=== PATIENT | male | born 1955 | race Caucasian/White ===

== ENCOUNTER 2018-04-04 20:20 | Emergency (ER) | payer MEDICAID ==
[~2018-04-04] VITALS: Ht 182.9 cm; Wt 77.3 kg
[~2018-04-04 20:20] MED LIST: ASPI-1264 PO; QUET25TA PO
[2018-04-04 20:26] VITALS: BP 113/69
[2018-04-04] MEDS ORDERED: PERM60CR19 TP (20:37)
[2018-04-04] MEDS ORDERED: PIP1KIT5 TP (20:37)
== END 2018-04-04 20:50 | disposition home or self-care (01) ==
LOC: ER 20:21
DX: B86 Scabies (principal); Z56.0 Unemployment, unspecified; Z79.82 Long term (current) use of aspirin; Z79.899 Other long term (current) drug therapy
CPT/HCPCS: 99283

== ENCOUNTER 2019-01-31 09:31 | Emergency (ER) | payer MEDICAID ==
[~2019-01-31] VITALS: Ht 182.9 cm; Wt 77.3 kg
[~2019-01-31 09:31] MED LIST changes: +PIP1KIT5 TP
[2019-01-31 10:25] LABS: BASOPHILS % (AUTO) 0.7 % (0-1); EOSINOPHILS # (AUTO) 0.2 X10'3 (0-0.9); EOSINOPHILS % (AUTO) 2.4 % (0-6); HEMATOCRIT 40.8 % (42.0-52.0); HEMOGLOBIN 13.7 g/dl (14.0-17.9); LYMPHOCYTES # (AUTO) 1.2 X10'3 (1.1-4.8); LYMPHOCYTES % (AUTO) 17.7 % (21-51); MEAN CORPUSCULAR HGB CONC 33.7 g/dL (33.0-36.5); MEAN CORPUSCULAR VOLUME 88.9 FL (78-98); MEAN PLATELET VOLUME 6.6 FL (7.4-10.4); MONOCYTES # (AUTO) 0.7 X10'3 (0-0.9); NEUTROPHILS # (AUTO) 4.9 X10'3 (1.8-7.7); NEUTROPHILS % (AUTO) 69.2 % (42-75); PLATELET COUNT 310 X10'3 (140-440); RED BLOOD COUNT 4.59 X10'6 (4.70-6.10); RED CELL DISTRIBUTION WIDTH 15.2 % (11.5-14.5); WHITE BLOOD COUNT 7.1 X10'3 (4.5-11.0)
[2019-01-31 10:38] LABS: ALANINE AMINOTRANSFERASE 86 U/L (12-78); ALBUMIN/GLOBULIN RATIO 0.6 (1.1-1.5); ALKALINE PHOSPHATASE 98 IU/L (46-116); ANION GAP 4 (8-16); ASPARTATE AMINO TRANSFERASE 66 U/L (10-37); BILIRUBIN,TOTAL 0.5 MG/DL (0.1-1.0); BLOOD UREA NITROGEN 12 MG/DL (7-18); BUN/CREATININE RATIO 17.9 (5.4-32.0); CALCIUM 8.8 MG/DL (8.5-10.1); CHLORIDE 107 MMOL/L (99-107); CREATININE 0.67 MG/DL (0.60-1.10); GLUCOSE 89 MG/DL (70-104); POTASSIUM 3.6 MMOL/L (3.5-5.1); SODIUM 139 MMOL/L (135-145); TOTAL CARBON DIOXIDE 28.5 MMOL/L (24-32); TOTAL PROTEIN 8.4 G/DL (6.4-8.2); eGFR > 90 ML/MIN
[2019-01-31 10:39] LABS: ETHANOL < 0.010 GM/DL (0.0-0.010)
--- NOTE | 2019-01-31 11:05 | NUR ---
pt belongings list completed, belongings placed in locker in ambulance bay
--- NOTE | 2019-01-31 11:24 | NUR ---
assumed care of pt from Chacha WHITAKER, pt is aware UA needed, has urinal, pt has agreed to stay to ER for evaluation by mental health
--- NOTE | 2019-01-31 12:30 | NUR ---
pt resting quietly on gurney, waiting to be evaluated by [facility]
--- NOTE | 2019-01-31 12:31 | NUR ---
gave pt sandwich, juice, pitcher of ice water and yogurt, pt is calm and cooperative, said he is hearing voices "they yell at me and tell me bad things"
[2019-01-31] MEDS ORDERED: nicotine 21mg patch - 24 hr TD ONE (12:35)
[2019-01-31 13:30] LABS: URINE AMPHETAMINE SCREEN NEGATIVE (Neg); URINE BARBITUATE SCREEN NEGATIVE (Neg); URINE BENZODIAZEPINES SCREEN NEGATIVE (Neg); URINE CANNABINOID SCREEN POSITIVE (Neg); URINE COCAINE SCREEN NEGATIVE (Neg); URINE METHADONE SCREEN NEGATIVE (Neg); URINE OPIATE SCREEN NEGATIVE (Neg); URINE PHENCYCLIDINE SCREEN NEGATIVE (Neg)
[2019-01-31] MEDS ORDERED: HYDR25CA PO (13:38)
[2019-01-31] MEDS ORDERED: QUET25TA PO (13:38)
--- NOTE | 2019-01-31 14:18 | NUR ---
pt is sleeping, gave pt warm blanket and pillow
--- NOTE | 2019-01-31 15:42 | NUR ---
pt ate lunch, maddie well, continues to rest quietly on [facility]
--- NOTE | 2019-01-31 16:27 | NUR ---
pt is resting quietly on gurney, resp even and unlabored, talking quietly to himself
--- NOTE | 2019-01-31 17:29 | NUR ---
pt is resting quietly on gurney
--- NOTE | 2019-01-31 17:55 | NUR ---
[facility] requesting TSH and UA, lab is aware
[2019-01-31 18:16] LABS: CLARITY,URINE CLEAR (Clear); COLOR,URINE YELLOW (Yellow); GLUCOSE, URINE NEGATIVE (Neg); KETONES,URINE NEGATIVE (Neg); LEUKOCYTE ESTERASE ,URINE NEGATIVE (Neg); NITRITES, URINE NEGATIVE (Neg); OCCULT BLOOD,URINE MODERATE (Neg); PROTEIN,URINE 100 mg/dl (Neg); UA COLLECTION TYPE CLN CATCH MIDSTREAM
[2019-01-31 18:23] LABS: SQUAMOUS EPITHELIAL CELL,UR FEW /LPF (FEW)
[2019-01-31 18:24] LABS: BACTERIA,URINE FEW /HPF (Neg); MUCUS STRANDS FEW /LPF (Neg)
[2019-01-31 18:25] LABS: HYALINE CASTS 0-3 /LPF (NEGATIVE)
--- NOTE | 2019-01-31 20:00 | NUR ---
The patient is a 63 y/o gentleman who was brought to the ER on a 5150 from [facility] via EMS. He was residing at the [facility] when he had increased psychotic symptoms and began hitting himself in the head and subsequently has a blackened right eye. He stated he has been taking all of his medications as directed but that he had recently had a medication change but was not able to state clearly what that was. He admits to having suicidal thoughts but stated, "I think about it but I'm a gnosticism and I don't want to go to the [place] of [place]" He reports constant voices telling him to do a variety of things and that they also insult him. He reports having visual hallucinations of different colors and shapes. He is very cooperative and pleasant. He was given a dinner tray and he ate well.
[2019-01-31] MEDS ORDERED: QUEtiapine 25mg tablet PO SCH (21:00)
[2019-01-31] MEDS: hydrOXYzine 25 MG tablet PO PRN (21:05)
--- NOTE | 2019-01-31 21:16 | NUR ---
Report given to Sera Wahl.
--- NOTE | 2019-01-31 21:47 | NUR ---
[facility] has been accepted for tomorrow morning at around 10am. The accepting provider is NABEEL Bianchi Chi.
--- NOTE | 2019-01-31 21:50 | NUR ---
The patient was complaining about his left ear. Dr. Riley made aware
--- NOTE | 2019-01-31 22:57 | NUR ---
Irrigation to patient's left ear with a moderate amount of cebum return. The patient is currently resting on his bed.
--- NOTE | 2019-02-01 00:32 | NUR ---
The patient appears to be asleep
--- NOTE | 2019-02-01 01:44 | NUR ---
The patient awake and yelling in response to voices. Woke up peer in the next bed. He then attempted to walk away and had to be redirected. The patient is cooperative with redirection but agitated by the voices.
[2019-02-01] MEDS ORDERED: haloperidol 5mg tablet PO ONE (01:45)
[2019-02-01] MEDS ORDERED: diphenhydrAMINE 25mg capsule PO ONE (01:45)
[2019-02-01] MEDS ORDERED: LORazepam 1 MG tablet PO ONE (01:45)
--- NOTE | 2019-02-01 02:11 | NUR ---
Dr. Riley made aware of patient agitation and orders received. The patient is paranoid and stated that the medications that were ordered were for punishment and he was assured that staff were trying to help him. He was given a snack of a sandwhich which he is eating at this time and studying the information on the wall.
--- NOTE | 2019-02-01 02:46 | NUR ---
The patient is sitting on his bed facing the wall and studying the posters on his wall again. He appears to be responding to internal stimuli but is less agitated at this time.
--- NOTE | 2019-02-01 04:40 | NUR ---
The patient appears to be sleeping
--- NOTE | 2019-02-01 06:30 | NUR ---
Pt lying in bed, appears to be sleeping.
[2019-02-01] MEDS ORDERED: QUEtiapine 25mg tablet PO SCH (07:30)
--- NOTE | 2019-02-01 07:58 | NUR ---
Pt up to the BR.
[2019-02-01] MEDS: hydrOXYzine 25 MG tablet PO PRN (08:34)
--- NOTE | 2019-02-01 08:41 | NUR ---
Deanne pyle from [facility], pt has been accepted at [facility], p/u time is 9485.
--- NOTE | 2019-02-01 09:47 | NUR ---
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
--- NOTE | 2019-02-01 09:52 | NUR ---
Pt transferred to [facility], all belongings given to security to carry to compressed air pile driver operator's car, pt ambulated out of building accompanied by compressed air pile driver operator and security.
[2019-02-01 09:54] VITALS: BP 130/77
== END 2019-02-01 09:52 ==
LOC: ER 09:32
DX: S00.11XA Contusion of right eyelid and periocular area, initial encounter (principal); F29 Unspecified psychosis not due to a substance or known physiological condition; B18.2 Chronic viral hepatitis C; F17.210 Nicotine dependence, cigarettes, uncomplicated; Z79.899 Other long term (current) drug therapy; Z56.0 Unemployment, unspecified; W22.8XXA Striking against or struck by other objects, initial encounter; Y93.89 Activity, other specified; Y92.89 Other specified places as the place of occurrence of the external cause; Y99.8 Other external cause status
CPT/HCPCS: 36415; 80053; 80305; 80320; 81001; 84443; 85025; 87088; 93005; 99285; Q0163; Q0177

== ENCOUNTER 2020-03-10 08:37 | Day surgery (SDC) | payer MEDICAID ==
[~2020-03-10] VITALS: Ht 182.9 cm; Wt 79.5 kg
[~2020-03-10 08:37] MED LIST changes: -ASPI-1264 PO; +HYDR25CA PO; -PIP1KIT5 TP
[2020-03-10 08:49] VITALS: BP 145/72
[2020-03-10] MEDS ORDERED: HYDR50TA65 PO (08:53)
[2020-03-10] MEDS ORDERED: QUET-1 PO (08:53)
[2020-03-10] MEDS ORDERED: LIDOcaine Viscous 15ml cup ONE (08:53)
[2020-03-10] MEDS ORDERED: MIDAZolam 5mg/5ml vial ONE (08:53)
[2020-03-10] MEDS ORDERED: fentaNYL/PF 50MCG/1 ML 2ML syringe ONE (08:53)
[2020-03-10 10:55] VITALS: BP 121/74
[2020-03-10 11:05] VITALS: BP 121/74
[2020-03-10 11:15] VITALS: BP 121/57
[2020-03-10 11:25] VITALS: BP 121/81
== END 2020-03-10 11:55 | disposition home or self-care (01) ==
LOC: GI LAB 08:37
PROVIDERS: ATTEND Internal Medicine Gastroenterology
DX: K74.60 Unspecified cirrhosis of liver (principal); I85.00 Esophageal varices without bleeding; K22.8 Other specified diseases of esophagus; K20.8 Other esophagitis; K29.70 Gastritis, unspecified, without bleeding
CPT/HCPCS: 43239; 99152; J2250; J3010; J7040; A4620

== ENCOUNTER 2020-08-18 21:41 | Emergency (ER) | payer MEDICAID ==
[~2020-08-18] VITALS: Ht 182.9 cm; Wt 80.0 kg
[~2020-08-18 21:41] MED LIST changes: -HYDR25CA PO; +HYDR50TA65 PO; +QUET-1 PO; -QUET25TA PO
[2020-08-18 21:53] VITALS: BP 123/87
[2020-08-18] MEDS ORDERED: Permethrin Cream 60gm TP ONE (23:10)
--- NOTE | 2020-08-18 23:41 | NUR ---
per pa we are to give patient the topical creams to take home and to use themselves after education
[2020-08-19] MEDS ORDERED: diphenhydrAMINE 2%/zinc acetate cream TP SCH (08:00)
== END 2020-08-18 23:44 | disposition home or self-care (01) ==
LOC: ER 21:41
DX: B86 Scabies (principal); N18.9 Chronic kidney disease, unspecified; Z86.19 Personal history of other infectious and parasitic diseases; Z72.89 Other problems related to lifestyle; Z56.0 Unemployment, unspecified; Z79.899 Other long term (current) drug therapy
CPT/HCPCS: 99283

== ENCOUNTER 2021-03-02 19:02 | Inpatient (IN) | payer MEDICAID ==
[~2021-03-02] VITALS: Ht 180.3 cm; Wt 106.9 kg
[2021-03-02 20:07] LABS: BASOPHILS % (AUTO) 0.2 % (0-1); EOSINOPHILS # (AUTO) 0.2 X10'3 (0-0.9); EOSINOPHILS % (AUTO) 1.4 % (0-6); HEMATOCRIT 44.5 % (42.0-52.0); HEMOGLOBIN 14.4 g/dl (14.0-17.9); LYMPHOCYTES # (AUTO) 0.2 X10'3 (1.1-4.8); LYMPHOCYTES % (AUTO) 1.1 % (21-51); MEAN CORPUSCULAR HEMOGLOBIN 30.6 PG (27.0-31.0); MEAN CORPUSCULAR HGB CONC 32.3 g/dL (33.0-36.5); MEAN CORPUSCULAR VOLUME 94.6 FL (78-98); MEAN PLATELET VOLUME 7.7 FL (7.4-10.4); MONOCYTES # (AUTO) 0.5 X10'3 (0-0.9); MONOCYTES % (AUTO) 2.8 % (2-12); NEUTROPHILS # (AUTO) 16.9 X10'3 (1.8-7.7); NEUTROPHILS % (AUTO) 94.5 % (42-75); PLATELET COUNT 213 X10'3 (140-440); RED BLOOD COUNT 4.71 X10'6 (4.70-6.10); RED CELL DISTRIBUTION WIDTH 18.1 % (11.5-14.5); WHITE BLOOD COUNT 17.8 X10'3 (4.5-11.0)
[2021-03-02 20:21] LABS: ALANINE AMINOTRANSFERASE 156 U/L (12-78); ALBUMIN 2.7 G/DL (3.4-5.0); ALKALINE PHOSPHATASE 76 IU/L (46-116); ANION GAP 11 (8-16); ASPARTATE AMINO TRANSFERASE 248 U/L (10-37); BILIRUBIN,TOTAL 4.8 MG/DL (0.1-1.0); BLOOD UREA NITROGEN 36 MG/DL (7-18); BUN/CREATININE RATIO 31.9 (5.4-32.0); CALCIUM 8.7 MG/DL (8.5-10.1); CHLORIDE 99 MMOL/L (99-107); CREATININE 1.13 MG/DL (0.60-1.10); GLUCOSE 80 MG/DL (70-104); POTASSIUM 4.4 MMOL/L (3.5-5.1); SODIUM 136 MMOL/L (135-145); TOTAL CARBON DIOXIDE 25.7 MMOL/L (24-32); eGFR 65 ML/MIN
[2021-03-02 20:29] LABS: ALBUMIN/GLOBULIN RATIO 0.5 (1.1-1.5); TOTAL PROTEIN 7.9 G/DL (6.4-8.2)
[2021-03-02] MEDS ORDERED: methylPREDNISolone sod succ 125mg/2ml vial IV ONE (21:00)
[2021-03-02] MEDS ORDERED: ipratropium/albuterol 3ml nebule NEB ONE (21:00)
[2021-03-02] MEDS ORDERED: temazepam 15mg capsule PO PRN (21:00)
[2021-03-02] MEDS ORDERED: albuterol 2.5 MG/3 ML nebule NEB ONE (21:00)
[2021-03-02 21:25] LABS: ANISOCYTOSIS 2+; PLATELET ESTIMATE NORMAL; TOTAL CELLS COUNTED 100; TOXIC GRANULATION 1+; TOXIC VACUOLATION 3+
[2021-03-02 21:26] LABS: BURR CELLS 1+
[2021-03-02] MEDS ORDERED: normal saline 1000ml 1,000 ML IV SCH (21:50)
[2021-03-02] MEDS ORDERED: magnesium 2GM in 50ml NS 50 ML IV PRN (21:50)
[2021-03-02] MEDS ORDERED: magnesium 4gm in 100ml NS 100 ML IV PRN (21:50)
[2021-03-02] MEDS ORDERED: aminophylline 250mg/10ml inj. IV PRN (21:50)
[2021-03-02] MEDS ORDERED: metoprolol tartrate 1mg/ml inj IV PRN (21:50)
[2021-03-02] MEDS ORDERED: potassium Cl 20 mEq SR tablet PO PRN ×2 (21:50)
[2021-03-02] MEDS ORDERED: magnesium Cl slow-release 64mg tablet PO PRN (21:50)
[2021-03-02] MEDS ORDERED: potassium Cl 40MEQ/1/2NS 520ml 520 ML IV PRN ×2 (21:50)
[2021-03-02] MEDS ORDERED: regadenoson 0.4mg/5ml syringe IV PRN (21:50)
[2021-03-02] MEDS ORDERED: nitroGLYCERIN 0.4mg SUBLingual tab SL PRN (21:50)
[2021-03-02] MEDS ORDERED: acetaminophen 325mg tablet PO PRN ×2 (21:50)
[2021-03-02] MEDS ORDERED: VANCOMYCIN 1,500MG inj. 1,500 MG in normal saline 500ml IV soln 300 ML IV ONE (22:05)
[2021-03-02] MEDS: ondansetron/PF 4mg/2ml inj IV PRN (22:46)
[2021-03-02] MEDS: CefTRIAXone 2gm/D5W 50ml BAG 50 ML IV SCH (22:47)
[2021-03-02] MEDS: albuterol 2.5 MG/3 ML nebule NEB SCH (23:24)
[2021-03-02 23:48] LABS: CLARITY,URINE SLIGHTLY CLOUDY (Clear); GLUCOSE, URINE NEGATIVE (Neg); KETONES,URINE NEGATIVE (Neg); LEUKOCYTE ESTERASE ,URINE NEGATIVE (Neg); NITRITES, URINE NEGATIVE (Neg); OCCULT BLOOD,URINE NEGATIVE (Neg); PROTEIN,URINE TRACE mg/dl (Neg)
[2021-03-02 23:55] LABS: COLOR,URINE DARK YELLOW (Yellow); UA COLLECTION TYPE URINAL
[2021-03-02 23:57] LABS: AMORPHOUS URATES 1+; BACTERIA,URINE NONE SEEN /HPF (Neg); MUCUS STRANDS MODERATE /LPF (Neg); RBC,URINE 0-2 /HPF (0-2); SQUAMOUS EPITHELIAL CELL,UR FEW /LPF (FEW); WBC,URINE 0-4 /HPF (0-4)
[2021-03-03] VITALS (14 sets, daily range): BP systolic 93–162; BP diastolic 55–84
[2021-03-03] MEDS ORDERED: fentaNYL/PF 50MCG/1 ML 2ML syringe IV ONE
[2021-03-03] MEDS ORDERED: etomidate 2mg/ml inj. IV ONE
[2021-03-03] MEDS ORDERED: ondansetron/PF 4mg/2ml inj IV ONE ×2
[2021-03-03] MEDS ORDERED: heparin 10,000 units/1 ML INJ IV ONE
[2021-03-03] MEDS: ondansetron/PF 4mg/2ml inj IV PRN (00:12)
[2021-03-03] MEDS ORDERED: amiodarone 150mg/dext, iso-os 100 ML IV ONE (00:20)
--- NOTE | 2021-03-03 00:58 | NUR ---
PT BELONGINGS GIVEN TO EVS TO LOCK UP IN THE SPECIAL AREA FOR ARTICLES CONTAMINATED WITH BED BUGS, BODY LICE ETC. ALL ITEMS DOUBLE BAGGED.
[2021-03-03] MEDS ORDERED: diltiazem-D5W 125mg/125ml 125 ML IV SCH (01:00)
[2021-03-03] MEDS: diltiazem-NS 100mg/100ml 100 ML IV SCH ×2 (01:06→11:49)
[2021-03-03 02:10] LABS: BASOPHILS % (AUTO) 0.2 % (0-1); EOSINOPHILS # (AUTO) 0.4 X10'3 (0-0.9); EOSINOPHILS % (AUTO) 2.8 % (0-6); HEMOGLOBIN 11.5 g/dl (14.0-17.9); LYMPHOCYTES # (AUTO) 0.2 X10'3 (1.1-4.8); LYMPHOCYTES % (AUTO) 1.3 % (21-51); MEAN CORPUSCULAR HGB CONC 31.9 g/dL (33.0-36.5); MEAN PLATELET VOLUME 7.9 FL (7.4-10.4); MONOCYTES # (AUTO) 0.4 X10'3 (0-0.9); MONOCYTES % (AUTO) 2.8 % (2-12); NEUTROPHILS # (AUTO) 13.2 X10'3 (1.8-7.7); NEUTROPHILS % (AUTO) 92.9 % (42-75); PLATELET COUNT 172 X10'3 (140-440); RED BLOOD COUNT 3.83 X10'6 (4.70-6.10); RED CELL DISTRIBUTION WIDTH 17.9 % (11.5-14.5); WHITE BLOOD COUNT 14.2 X10'3 (4.5-11.0)
[2021-03-03 02:28] LABS: ALANINE AMINOTRANSFERASE 96 U/L (12-78); ALBUMIN 1.8 G/DL (3.4-5.0); ALBUMIN/GLOBULIN RATIO 0.5 (1.1-1.5); ALKALINE PHOSPHATASE 51 IU/L (46-116); ANION GAP 11 (8-16); ASPARTATE AMINO TRANSFERASE 126 U/L (10-37); BILIRUBIN,TOTAL 4.5 MG/DL (0.1-1.0); BLOOD UREA NITROGEN 35 MG/DL (7-18); BUN/CREATININE RATIO 29.4 (5.4-32.0); CALCIUM 6.7 MG/DL (8.5-10.1); CHLORIDE 106 MMOL/L (99-107); CREATININE 1.19 MG/DL (0.60-1.10); GLUCOSE 95 MG/DL (70-104); HDL CHOLESTEROL 10 MG/DL (35-60); LDL CHOLESTEROL 22 MG/DL (50-100); MAGNESIUM 1.9 MG/DL (1.5-2.4); POTASSIUM 3.7 MMOL/L (3.5-5.1); SODIUM 139 MMOL/L (135-145); TOTAL PROTEIN 5.4 G/DL (6.4-8.2); TRIGLYCERIDES 44 MG/DL (20-135); eGFR 62 ML/MIN
[2021-03-03 02:34] LABS: CHOLESTEROL < 50 MG/DL (0-200)
[2021-03-03] MEDS ORDERED: HYDR-3686 PO (03:40)
[2021-03-03] MEDS: albuterol 2.5 MG/3 ML nebule NEB SCH ×2 (03:40→08:01)
--- NOTE | 2021-03-03 04:31 | NUR ---
PAGER ID: [phone] MESSAGE: Jose Daniel Leonard rm 3020 dx SOB 1wk; COPD/CHF exacerbation Pt is complaining of chest pain 04/24. Shanita Paxton [phone]
--- NOTE | 2021-03-03 04:59 | NUR ---
Notified Dr Rubio about pt complaint of chest pain 04/24. Dr Rubio stated she is aware of the patient's chest pain and there is a charley scan ordered for today. No new orders at this time.
--- NOTE | 2021-03-03 06:11 | NUR ---
Problems reprioritized. Patient report given, questions answered & plan of care reviewed with JULIANNE Peoples.
--- NOTE | 2021-03-03 06:43 | NUR ---
Patient in room PCU 3020. I have received report from Shanita WHITAKER and had the opportunity to ask questions and assume patient care.
--- NOTE | 2021-03-03 07:23 | NUR ---
Paged Dr. Burkett regarding lexiscan PAGER ID: [phone] MESSAGE: [phone] Jose Daniel Leonard. House sup called. Lexiscan cancelled for patient today. Patient needs a cardiac consult. Not have active chest pain. And needs to be on PO cardiac med. Before lexiscan can be complete. PCU Crystal
[2021-03-03] MEDS ORDERED: heparin, porcine 5000 units/ml vial SQ SCH (08:00)
[2021-03-03] MEDS ORDERED: nicotine 14mg patch - 24hr TD SCH (08:00)
[2021-03-03] MEDS ORDERED: methylPREDNISolone sod succ 125mg/2ml vial IV SCH (08:00)
[2021-03-03] MEDS: K and/or MAG REPLACEMENT MC SCH ×2 (08:00→20:00)
[2021-03-03] MEDS: aspirin 81mg tablet.DR PO SCH (09:01)
[2021-03-03] MEDS: docusate sod 100mg capsule PO SCH ×2 (09:02→20:24)
[2021-03-03] MEDS: nicotine 14mg patch - 24hr TD SCH (09:02)
[2021-03-03] MEDS: pantoprazole 40mg Tablet.DR PO SCH (09:02)
[2021-03-03] MEDS: furosemide 40mg/4ml inj IV SCH ×2 (09:02→20:00)
[2021-03-03] MEDS ORDERED: QUET100T33 PO (09:23)
--- NOTE | 2021-03-03 09:29 | NUR ---
Paged Dr. Burkett regarding 11 beat run of vtach PAGER ID: [phone] MESSAGE: [phone] Jose Daniel Leonard. Patient had a 11 beat run of Vtach at 0828. [facility]
[2021-03-03] MEDS ORDERED: OMEP20TA5 PO (09:38)
[2021-03-03] MEDS ORDERED: Permethrin 1% 59ml topical rinse TP ONE (11:10)
[2021-03-03] MEDS ORDERED: Ivermectin 3mg tablet PO ONE (11:15)
[2021-03-03] MEDS: vancomycin/NS 1 GM ADD-VANTAGE 250 ML IV SCH ×2 (11:48→22:29)
[2021-03-03] MEDS ORDERED: hydrOXYzine 25 MG tablet PO PRN (13:05)
[2021-03-03] MEDS ORDERED: ipratropium/albuterol 3ml nebule NEB PRN (13:05)
[2021-03-03] MEDS: metoprolol succinate 25mg (24-HOUR) SR. Tablet PO SCH (13:22)
[2021-03-03] MEDS: methylPREDNISolone sod succ 125mg/2ml vial IV SCH ×2 (14:00→20:24)
--- NOTE | 2021-03-03 14:17 | NUR ---
Problems reprioritized. Patient report given, questions answered & plan of care reviewed with Hope RN. Patient stable at transfer of care.
[2021-03-03] MEDS: ipratropium/albuterol 3ml nebule NEB SCH ×3 (15:00→23:34)
--- NOTE | 2021-03-03 15:29 | NUR ---
Malnutrition consult: Pt reports wt loss with decreased appetite per malnutrition risk screen with RN. Noted that pt has memory loss issues and is a poor historian per H&P. Pt with bed scaled wt of 106.9 kg, wt hx in EMR ranges 73-80 kg. Pt documented with severe muscle weakness and BUE/BLE moderate edema, possibly r/t h/o CHF. Pt on a heart healthy diet and eating well with documented 100% PO intake first meal. Pt currently lacks a minimum of two criteria for malnutrition. Will continue to follow and monitor qualifying criteria. Addendum: 03/03/21 at [address] Amended: Links added.
--- NOTE | 2021-03-03 16:12 | NUR ---
PAGER ID: [phone] MESSAGE: PATIENT IN ROOM 320-B ROSY RUIZ/Delaney HAS BEEN ON THE LOW SIDE BETWEEN , AND LAST ONE , JUST SOI THAT YOU ARE AWARE IF YOU WANT TO ORDER ANYN THING THANKS ( SHU REYNOSO)
--- NOTE | 2021-03-03 18:24 | NUR ---
Patient in room PCU 3020. I have received report from Hope WHITAKER and had the opportunity to ask questions and assume patient care.
[2021-03-03] MEDS: lactobacillus rhamnosus 10,000 MMU CELLS/CAPSULE PO SCH (20:24)
[2021-03-03] MEDS: quetiapine 100mg tablet PO SCH (20:24)
[2021-03-03] MEDS ORDERED: regadenoson 0.4mg/5ml syringe IV ONE (21:00)
[2021-03-03] MEDS ORDERED: nitroGLYCERIN 0.4mg SUBLingual tab SL PRN (21:00)
[2021-03-03] MEDS ORDERED: metoprolol tartrate 1mg/ml inj IV PRN (21:00)
[2021-03-03] MEDS ORDERED: aminophylline 250mg/10ml inj. IV PRN (21:00)
[2021-03-03] MEDS: CefTRIAXone 2gm/D5W 50ml BAG 50 ML IV SCH (21:00)
[2021-03-03 22:40] LABS: URINE AMPHETAMINE SCREEN NEGATIVE (Neg); URINE BARBITUATE SCREEN NEGATIVE (Neg); URINE BENZODIAZEPINES SCREEN NEGATIVE (Neg); URINE CANNABINOID SCREEN NEGATIVE (Neg); URINE COCAINE SCREEN NEGATIVE (Neg); URINE METHADONE SCREEN NEGATIVE (Neg); URINE OPIATE SCREEN NEGATIVE (Neg); URINE PHENCYCLIDINE SCREEN NEGATIVE (Neg)
[2021-03-04] VITALS (16 sets, daily range): BP systolic 83–125; BP diastolic 49–80
[2021-03-04] MEDS: methylPREDNISolone sod succ 125mg/2ml vial IV SCH ×4 (01:08→19:23)
[2021-03-04] MEDS: ipratropium/albuterol 3ml nebule NEB SCH ×6 (04:27→23:32)
--- NOTE | 2021-03-04 06:25 | NUR ---
Patient in room PCU 3020. I have received report from Naty WHITAKER and had the opportunity to ask questions and assume patient care. Pt sleeping soundly, VS stable. chest rising and falling evenly.
--- NOTE | 2021-03-04 06:29 | NUR ---
Problems reprioritized. Patient report given, questions answered & plan of care reviewed with Kerri WHITAKER.
--- NOTE | 2021-03-04 07:10 | NUR ---
DR ANKIT FELDMAN FOR RAPID RESPONSE. YNES CCRN AT BEDSIDE. PT O2 SAT 18. PT ROD AND NONRESPONSIVE.
[2021-03-04 07:14] LABS: BASOPHILS % (AUTO) 0.2 % (0-1); EOSINOPHILS # (AUTO) 0.1 X10'3 (0-0.9); EOSINOPHILS % (AUTO) 0.7 % (0-6); HEMATOCRIT 36.1 % (42.0-52.0); HEMOGLOBIN 11.7 g/dl (14.0-17.9); LYMPHOCYTES # (AUTO) 0.3 X10'3 (1.1-4.8); LYMPHOCYTES % (AUTO) 3.1 % (21-51); MEAN CORPUSCULAR HEMOGLOBIN 30.5 PG (27.0-31.0); MEAN CORPUSCULAR HGB CONC 32.5 g/dL (33.0-36.5); MEAN CORPUSCULAR VOLUME 93.8 FL (78-98); MEAN PLATELET VOLUME 8.1 FL (7.4-10.4); MONOCYTES # (AUTO) 0.4 X10'3 (0-0.9); MONOCYTES % (AUTO) 4.9 % (2-12); NEUTROPHILS # (AUTO) 7.4 X10'3 (1.8-7.7); NEUTROPHILS % (AUTO) 91.1 % (42-75); PLATELET COUNT 132 X10'3 (140-440); RED BLOOD COUNT 3.85 X10'6 (4.70-6.10); RED CELL DISTRIBUTION WIDTH 18.4 % (11.5-14.5); WHITE BLOOD COUNT 8.1 X10'3 (4.5-11.0)
[2021-03-04 07:22] LABS: ABG BASE EXCESS 0.1 mmol/L (-2.0-2.0); ABG HCO3 24.8 mmol/L (22.0-26.0); ABG OXYGEN SATURATION 99.5 % (94-97); ABG PCO2 (T) 40.4 mmHg (35.0-48.0); ALLEN'S TEST POSITIVE; FCOHb 0.1 % (0.0-3.9); FMetHb 0.3 % (0.0-1.5); FO2Hb 99.1 % (94-97); TOTAL HEMOGLOBIN 12.3 G/dl (14.0-18.0)
[2021-03-04 07:29] LABS: ALANINE AMINOTRANSFERASE 80 U/L (12-78); ALBUMIN 1.9 G/DL (3.4-5.0); ALBUMIN/GLOBULIN RATIO 0.4 (1.1-1.5); ALKALINE PHOSPHATASE 50 IU/L (46-116); ANION GAP 6 (8-16); ASPARTATE AMINO TRANSFERASE 65 U/L (10-37); BILIRUBIN,TOTAL 3.2 MG/DL (0.1-1.0); BLOOD UREA NITROGEN 50 MG/DL (7-18); BUN/CREATININE RATIO 43.9 (5.4-32.0); CHLORIDE 103 MMOL/L (99-107); CREATININE 1.14 MG/DL (0.60-1.10); GLUCOSE 145 MG/DL (70-104); MAGNESIUM 2.4 MG/DL (1.5-2.4); POTASSIUM 4.6 MMOL/L (3.5-5.1); SODIUM 138 MMOL/L (135-145); TOTAL CARBON DIOXIDE 28.9 MMOL/L (24-32); TOTAL PROTEIN 6.2 G/DL (6.4-8.2); eGFR 65 ML/MIN
[2021-03-04] MEDS: pantoprazole 40mg Tablet.DR PO SCH (07:30)
[2021-03-04] MEDS ORDERED: pantoprazole 40mg Tablet.DR PO SCH (07:30)
--- NOTE | 2021-03-04 07:30 | NUR ---
PAGER ID: [phone] MESSAGE: 302Enrique JOSEPH. [facility]
--- NOTE | 2021-03-04 07:41 | NUR ---
Dr. Burkett gave new orders New orders received for CXR, and CT angio of chest to R/O PE (with contrast.) Elsy to wait until after CTA.
[2021-03-04] MEDS: lactobacillus rhamnosus 10,000 MMU CELLS/CAPSULE PO SCH ×3 (08:00→20:00)
[2021-03-04] MEDS: K and/or MAG REPLACEMENT MC SCH ×2 (08:00→20:00)
[2021-03-04] MEDS: furosemide 40mg/4ml inj IV SCH ×2 (08:00→19:20)
[2021-03-04] MEDS: docusate sod 100mg capsule PO SCH ×3 (08:00→20:00)
[2021-03-04] MEDS: metoprolol succinate 25mg (24-HOUR) SR. Tablet PO SCH (08:00)
[2021-03-04 08:01] LABS: PLATELET ESTIMATE DECREASED
[2021-03-04 08:02] LABS: ANISOCYTOSIS 2+; BURR CELLS FEW; ELLIPTOCYTES FEW
[2021-03-04] MEDS: aspirin 81mg tablet.DR PO SCH (08:30)
[2021-03-04 08:47] LABS: HIV ANTIBODY 1&2 RAPID NON-REACTIVE (Neg)
[2021-03-04] MEDS ORDERED: normal saline 1000ml 1,000 ML IV ONE (09:45)
--- NOTE | 2021-03-04 09:45 | NUR ---
Dr. Burkett and this nurse spoke with pt regarding code status Pt accurately stated his name, though voice weak. Pt indicated "NO" to wanting CPR/intervention if his heart should stop x3. Pt repeatedly stating he wants to leave. Dr. Burkett to change code status to DNR. 250 ml fluid bolus ordered and administered. new order for covid rapid test stat, and Dr. Burkett indicated he wants thoracentesis done charles. Dr. Burkett notified that Lasix, metorprolol held due to BP: 91/52; HR 115; SPO2 97% on 3LPM. respirations 21.
[2021-03-04] MEDS ORDERED: VANCOMYCIN LEVEL IV ONE (10:30)
[2021-03-04] MEDS ORDERED: iohexol 350MG/ML 100ml bottle IV ONE (11:19)
[2021-03-04] MEDS: piperacillin/tazo 3.375gm/50ml 50 ML IV SCH ×3 (11:30→22:42)
--- NOTE | 2021-03-04 12:24 | NUR ---
Secondary Lice tx Per NABEEL Ford, second lice tx ordered. per Angio, thorocentesis can not be done until second lice hair tx completed.
[2021-03-04] MEDS ORDERED: Permethrin 1% 59ml topical rinse TP ONE (12:25)
[2021-03-04] MEDS: vancomycin/NS 1 GM ADD-VANTAGE 250 ML IV SCH ×2 (14:40→22:42)
[2021-03-04] MEDS: NORepinephrine 8mg/ 250ml NS 250 ML IV SCH (14:40)
[2021-03-04] MEDS ORDERED: DOBUTamine 2000 MCG/250ML BAG IV SCH (14:45)
--- NOTE | 2021-03-04 15:00 | NUR ---
ICU nurse and ICU Dr. Qureshi to unit Pt evaluated by ICU nurse and ICU doc. pt to be transferred to ICU. New orders for PICC. Thoracentesis to be completed prior to transfer.
[2021-03-04] MEDS ORDERED: albumin (human) 25% 100 ML IV solution IV ONE (15:35)
--- NOTE | 2021-03-04 15:42 | NUR ---
PICC consent Charlotte Pate (Pt's ex ) called and verbal consent for PICC given to this nurse and charge nurse Rhiannon Gomez RN
--- NOTE | 2021-03-04 15:43 | NUR ---
Thoracentesis completed. PICC nurse notified. Thoracentesis completed. 1200ml fluid drained. PICC nurse paged as soon as ryne done per her request. Pt positioned on his left side.
[2021-03-04] MEDS: nicotine 14mg patch - 24hr TD SCH (16:02)
[2021-03-04 16:23] LABS: BFSOURCE RIGHT PLEURAL FLD; PLEURAL FLUID PH 7.472 (7.63-7.65)
[2021-03-04 16:25] LABS: GLUCOSE,BODY FLUID 149 MG/DL; LDH,BODY FLUID 90 U/L
--- NOTE | 2021-03-04 16:26 | NUR ---
Called ICU to give report. Ct WHITAKER will call back to receive report.
--- NOTE | 2021-03-04 16:36 | NUR ---
received patient report from Kerri WHITAKER.
[2021-03-04 16:42] LABS: TOTAL PROTEIN,BODY FLUID < 2.0 G/DL
--- NOTE | 2021-03-04 16:48 | NUR ---
Problems reprioritized. Patient report given, questions answered & plan of care reviewed with Ct RN in ICU. pt to transfer after PICC placed.
[2021-03-04 17:09] LABS: LYMPHOCYTES,BODY FLUID 12 %; MONOCYTES,BODY FLUID 14 %; NEUTROPHILS,BODY FLUID 74 %
[2021-03-04 17:10] LABS: BFAPPEAR HAZY
[2021-03-04 17:11] LABS: BF MESOTHELIAL CELLS MODERATE; BF RBC COUNT 450 /CU MM; BF WBC COUNT 380 /CU MM (0-1000); BFCOLOR YELLOW; BFVOLUME 70 ML
--- NOTE | 2021-03-04 18:00 | NUR ---
Patient in room PCU 3020. I have received report from Kerri WHITAKER and had the opportunity to ask questions and assume patient care.
--- NOTE | 2021-03-04 18:16 | NUR ---
Problems reprioritized. Patient report given, questions answered & plan of care reviewed with Yoav RN and Shira RN. discussed course of events of the day and ICU transfer pending.
--- NOTE | 2021-03-04 18:22 | NUR ---
Patient report given, questions answered & plan of care reviewed with Adalberto WHITAKER.
[2021-03-04] MEDS: albumin (human) 25% 100ml IV 100 ML IV SCH (19:22)
[2021-03-04] MEDS: heparin, porcine 5000 units/ml vial SQ SCH (19:23)
[2021-03-04] MEDS ORDERED: LIDOcaine 2% 10ml TOPICAL JELLY (Urojet) TP ONE (20:35)
[2021-03-04] MEDS: quetiapine 100mg tablet PO SCH (20:38)
[2021-03-04] MEDS: LORazepam 2 mg/ml vial IV PRN (22:41)
[2021-03-05] VITALS (9 sets, daily range): BP systolic 100–131; BP diastolic 50–85
[2021-03-05] MEDS: NORepinephrine 8mg/ 250ml NS 250 ML IV SCH ×2 (01:28→15:38)
[2021-03-05] MEDS: albumin (human) 25% 100ml IV 100 ML IV SCH ×4 (01:43→19:49)
[2021-03-05] MEDS: methylPREDNISolone sod succ 125mg/2ml vial IV SCH ×4 (01:43→19:38)
[2021-03-05] MEDS: furosemide 40mg/4ml inj IV SCH ×4 (01:44→19:38)
[2021-03-05] MEDS: ipratropium/albuterol 3ml nebule NEB SCH ×6 (03:09→23:00)
[2021-03-05 03:15] LABS: BASOPHILS % (AUTO) 0.2 % (0-1); EOSINOPHILS % (AUTO) 0 % (0-6); HEMATOCRIT 34.2 % (42.0-52.0); LYMPHOCYTES # (AUTO) 0.3 X10'3 (1.1-4.8); LYMPHOCYTES % (AUTO) 2.9 % (21-51); MEAN CORPUSCULAR HEMOGLOBIN 30.4 PG (27.0-31.0); MEAN CORPUSCULAR HGB CONC 32.2 g/dL (33.0-36.5); MEAN CORPUSCULAR VOLUME 94.3 FL (78-98); MONOCYTES # (AUTO) 0.5 X10'3 (0-0.9); MONOCYTES % (AUTO) 5.5 % (2-12); NEUTROPHILS # (AUTO) 8.1 X10'3 (1.8-7.7); NEUTROPHILS % (AUTO) 91.4 % (42-75); PLATELET COUNT 109 X10'3 (140-440); RED BLOOD COUNT 3.62 X10'6 (4.70-6.10); RED CELL DISTRIBUTION WIDTH 18.3 % (11.5-14.5); WHITE BLOOD COUNT 8.9 X10'3 (4.5-11.0)
[2021-03-05 03:23] LABS: ALANINE AMINOTRANSFERASE 61 U/L (12-78); ALBUMIN 2.4 G/DL (3.4-5.0); ALBUMIN/GLOBULIN RATIO 0.6 (1.1-1.5); ALKALINE PHOSPHATASE 52 IU/L (46-116); ANION GAP 11 (8-16); ASPARTATE AMINO TRANSFERASE 45 U/L (10-37); BILIRUBIN,TOTAL 2.9 MG/DL (0.1-1.0); BLOOD UREA NITROGEN 51 MG/DL (7-18); BUN/CREATININE RATIO 45.9 (5.4-32.0); CALCIUM 7.9 MG/DL (8.5-10.1); CHLORIDE 102 MMOL/L (99-107); CREATININE 1.11 MG/DL (0.60-1.10); GLUCOSE 175 MG/DL (70-104); MAGNESIUM 2.3 MG/DL (1.5-2.4); POTASSIUM 4.1 MMOL/L (3.5-5.1); SODIUM 141 MMOL/L (135-145); TOTAL CARBON DIOXIDE 28.1 MMOL/L (24-32); TOTAL PROTEIN 6.5 G/DL (6.4-8.2); eGFR 67 ML/MIN
--- NOTE | 2021-03-05 06:22 | NUR ---
Problems reprioritized. Patient report given, questions answered & plan of care reviewed with Hope WHITAKER.
[2021-03-05] MEDS: K and/or MAG REPLACEMENT MC SCH ×2 (08:00→19:38)
[2021-03-05] MEDS: lactobacillus rhamnosus 10,000 MMU CELLS/CAPSULE PO SCH ×2 (08:04→19:38)
[2021-03-05] MEDS: pantoprazole 40mg Tablet.DR PO SCH (08:04)
[2021-03-05] MEDS: heparin, porcine 5000 units/ml vial SQ SCH ×2 (08:04→19:38)
[2021-03-05] MEDS: nicotine 14mg patch - 24hr TD SCH (08:04)
[2021-03-05] MEDS: docusate sod 100mg capsule PO SCH ×2 (08:04→19:38)
[2021-03-05] MEDS: metoprolol succinate 25mg (24-HOUR) SR. Tablet PO SCH (08:08)
[2021-03-05] MEDS: piperacillin/tazo 3.375gm/50ml 50 ML IV SCH ×2 (08:08→16:30)
[2021-03-05] MEDS: aspirin 81mg tablet.DR PO SCH (08:08)
[2021-03-05] MEDS: LORazepam 2 mg/ml vial IV PRN ×2 (10:02→19:52)
[2021-03-05] MEDS: lisinopril 20mg tablet PO SCH (10:50)
[2021-03-05] MEDS ORDERED: metoprolol succinate 25mg (24-HOUR) SR. Tablet PO SCH (10:50)
[2021-03-05 11:12] LABS: HBSAG SCREEN Negative (Negative); HEP A AB, IGM Negative (Negative); HEPATITIS C ANTIBODY >11.0 s/co ratio (0.0-0.9)
[2021-03-05] MEDS: vancomycin/NS 1 GM ADD-VANTAGE 250 ML IV SCH ×2 (11:45→23:53)
--- NOTE | 2021-03-05 12:54 | NUR ---
PAGER ID: [phone] MESSAGE: Re: Jose Daniel Leonard. Room: 3020. Order for Dobutamine was DC'd yesterday. Can I re-order it at 2mcg? -[facility] #[id number] -Dr. Burkett paged concerning Pt's medication orders.
[2021-03-05] MEDS: DOBUTamine-DoBUTrex 500mg/D5W 250 ML IV SCH (13:45)
--- NOTE | 2021-03-05 18:40 | NUR ---
Patient in room PCU 3020. I have received report from mateo singh and had the opportunity to ask questions and assume patient care.
--- NOTE | 2021-03-05 19:20 | NUR ---
asked dr jones is he wants heparin subq given for this evening since platelets are 109, he said go ahead and administer
[2021-03-05] MEDS: quetiapine 100mg tablet PO SCH (21:00)
--- NOTE | 2021-03-05 21:23 | NUR ---
PT PULLED OUT PICC LINE SENIOR ENVIRONMENTAL TECHNICIAN AWARE
[2021-03-05] MEDS ORDERED: amiodarone 150mg/dext, iso-os 100 ML IV ONE ×2 (22:35→23:00)
[2021-03-05] MEDS: amiodarone/D5 360MG/200ML BAG 200 ML IV SCH (22:45)
--- NOTE | 2021-03-05 22:51 | NUR ---
dr jones was notified about the patient ripping everything off. his picc line and being non compliant. pt was placed in restraints. was asked for haldol or geodone but he will only increase to 1 mg of ativan. he was told ativan did not work earlier. pt is suppose to be on dibutamine and currently we have no iv access.
--- NOTE | 2021-03-05 22:57 | NUR ---
PAGER ID: [phone] MESSAGE: Jose Daniel Akbar [id number] Please call me as soon as you can to verify orders. Pt ripped out his Picc line. Thank You, Jagjit WHITAKER PCU [id number]
[2021-03-05] MEDS ORDERED: haloperidol lactate 5mg/ml inj IM ONE (23:00)
--- NOTE | 2021-03-05 23:04 | NUR ---
called dr perez about patient being noncompliant and ripped everything out everything including his picc line. dr perez ordered 5mg of haldol once, he order amiodarone a bolus of 150 and a sitter for the pt after we get access in pt. md was also told that pt will not take anything by mouth and spits everything out
[2021-03-06] VITALS (9 sets, daily range): BP systolic 114–143; BP diastolic 72–97
[2021-03-06] MEDS ORDERED: ziprasidone IM 20mg inj **IM only IM ONE (02:00)
[2021-03-06] MEDS: methylPREDNISolone sod succ 125mg/2ml vial IV SCH ×2 (02:02→09:27)
[2021-03-06] MEDS: furosemide 40mg/4ml inj IV SCH ×3 (02:02→14:59)
[2021-03-06] MEDS ORDERED: diphenhydrAMINE 50 mg/ml inj IV ONE (02:05)
[2021-03-06] MEDS: albumin (human) 25% 100ml IV 100 ML IV SCH ×3 (02:14→14:40)
--- NOTE | 2021-03-06 02:46 | NUR ---
notified erma from lab telling her that pt is not gonna be a stick because he has no picc line
[2021-03-06] MEDS: ipratropium/albuterol 3ml nebule NEB SCH ×6 (03:00→23:28)
--- NOTE | 2021-03-06 03:41 | NUR ---
zosyn held attempted multiple times and multiple nurses to get iv in no success. zosyn will held to be held since its not compatible with dobutamine and amiodarone. insulation cupola chargersamantha fish
--- NOTE | 2021-03-06 03:52 | NUR ---
notified dr jones about having difficulty putting another iv in on pt and explained that pt is running amiodarone and dobutin currently. said to hold te dobutamine, monitor pt's vitals and administer the zosyn. once the zosyn finishes continue the dobutamine.
--- NOTE | 2021-03-06 03:52 | NUR ---
received order to make pt a 3 point restraint
[2021-03-06] MEDS: DOBUTamine-DoBUTrex 500mg/D5W 250 ML IV SCH (05:21)
[2021-03-06] MEDS: amiodarone/D5 360MG/200ML BAG 200 ML IV SCH ×4 (05:37→22:45)
--- NOTE | 2021-03-06 06:07 | NUR ---
Problems reprioritized. Patient report given, questions answered & plan of care reviewed with bryanna singh.
--- NOTE | 2021-03-06 06:09 | NUR ---
Patient in room PCU 3020. I have received report from JULIANNE Sparks and had the opportunity to ask questions and assume patient care.
[2021-03-06 06:49] LABS: BASOPHILS # (AUTO) 0.1 X10'3 (0-0.2); BASOPHILS % (AUTO) 0.5 % (0-1); EOSINOPHILS % (AUTO) 0.1 % (0-6); HEMATOCRIT 37.5 % (42.0-52.0); LYMPHOCYTES # (AUTO) 0.3 X10'3 (1.1-4.8); MEAN CORPUSCULAR HEMOGLOBIN 30.2 PG (27.0-31.0); MEAN CORPUSCULAR HGB CONC 32.1 g/dL (33.0-36.5); MEAN CORPUSCULAR VOLUME 93.9 FL (78-98); MEAN PLATELET VOLUME 7.9 FL (7.4-10.4); MONOCYTES # (AUTO) 0.6 X10'3 (0-0.9); MONOCYTES % (AUTO) 5.7 % (2-12); NEUTROPHILS # (AUTO) 10.2 X10'3 (1.8-7.7); NEUTROPHILS % (AUTO) 90.7 % (42-75); PLATELET COUNT 107 X10'3 (140-440); RED BLOOD COUNT 3.99 X10'6 (4.70-6.10); RED CELL DISTRIBUTION WIDTH 18.9 % (11.5-14.5); WHITE BLOOD COUNT 11.2 X10'3 (4.5-11.0)
[2021-03-06] MEDS: piperacillin/tazo 3.375gm/50ml 50 ML IV SCH ×4 (07:05→23:28)
--- NOTE | 2021-03-06 07:05 | NUR ---
Due to patient removing various IVs overnight, noc shift unable to run Zosyn per schedule. Bag from noc shift still running, started late. Spoke to pharmacy, will omit 0800 dose, per their instruction.
[2021-03-06 07:23] LABS: ALANINE AMINOTRANSFERASE 56 U/L (12-78); ALBUMIN 3.4 G/DL (3.4-5.0); ALBUMIN/GLOBULIN RATIO 0.9 (1.1-1.5); ALKALINE PHOSPHATASE 46 IU/L (46-116); ANION GAP 12 (8-16); ASPARTATE AMINO TRANSFERASE 34 U/L (10-37); BLOOD UREA NITROGEN 47 MG/DL (7-18); BUN/CREATININE RATIO 41.6 (5.4-32.0); CALCIUM 8.6 MG/DL (8.5-10.1); CHLORIDE 105 MMOL/L (99-107); CREATININE 1.13 MG/DL (0.60-1.10); GLUCOSE 123 MG/DL (70-104); MAGNESIUM 2.4 MG/DL (1.5-2.4); POTASSIUM 3.9 MMOL/L (3.5-5.1); SODIUM 146 MMOL/L (135-145); TOTAL CARBON DIOXIDE 29.5 MMOL/L (24-32); TOTAL PROTEIN 7.3 G/DL (6.4-8.2); eGFR 65 ML/MIN
[2021-03-06] MEDS: nicotine 14mg patch - 24hr TD SCH (08:00)
[2021-03-06] MEDS: K and/or MAG REPLACEMENT MC SCH ×2 (08:00→20:00)
[2021-03-06] MEDS: apixaban 5mg tablet PO SCH ×2 (08:00→20:00)
[2021-03-06] MEDS: LORazepam 2 mg/ml vial IV PRN (09:26)
[2021-03-06] MEDS: metoprolol succinate 25mg (24-HOUR) SR. Tablet PO SCH (09:32)
[2021-03-06] MEDS: lactobacillus rhamnosus 10,000 MMU CELLS/CAPSULE PO SCH ×2 (09:32→20:00)
[2021-03-06] MEDS: aspirin 81mg tablet.DR PO SCH (09:33)
[2021-03-06] MEDS: spironolactone 25 MG tablet PO SCH (09:33)
[2021-03-06] MEDS: pantoprazole 40mg Tablet.DR PO SCH (09:33)
[2021-03-06] MEDS: lisinopril 20mg tablet PO SCH (09:34)
[2021-03-06] MEDS: docusate sod 100mg capsule PO SCH ×2 (09:34→20:00)
[2021-03-06] MEDS ORDERED: DOBUTamine-DoBUTrex 500mg/D5W 250 ML IV SCH (10:25)
--- NOTE | 2021-03-06 10:43 | NUR ---
PAGER ID: [phone] MESSAGE: Jing Leonard 3020. Dobutamine gtt has been off several hours d/t IV access issues. b/p stable ranging 143/94-111/85. Would you like to d/c or hold? Lety [phone]
--- NOTE | 2021-03-06 11:34 | NUR ---
Informed dr perez of medication held: PAGER ID: [phone] MESSAGE: Jing Lu 3020 PLT 107, christa held. Lety [phone]
[2021-03-06] MEDS: vancomycin/NS 1 GM ADD-VANTAGE 250 ML IV SCH ×2 (11:50→23:28)
[2021-03-06] MEDS ORDERED: ondansetron 4mg rapidly disintigrating tab PO PRN (14:20)
[2021-03-06] MEDS ORDERED: LORazepam 2 mg/ml vial IV ONE (16:40)
--- NOTE | 2021-03-06 19:26 | NUR ---
Patient in room PCU 3020. I have received report from Lety WHITAKER and had the opportunity to ask questions and assume patient care.
[2021-03-06] MEDS: methylPREDNISolone sod succ/PF 40mg inj. IV SCH (20:31)
[2021-03-06] MEDS: quetiapine 100mg tablet PO SCH (20:33)
--- NOTE | 2021-03-06 21:08 | NUR ---
Patient unable to swallow PO medication, Notified Dr. Licea. Patient unable to clear secretions, Notified Dr. Licea who ordered NT suction.
[2021-03-07] VITALS (7 sets, daily range): BP systolic 114–144; BP diastolic 66–99
[2021-03-07] MEDS ORDERED: furosemide 40mg/4ml inj IV ONE ×2 (00:15→13:05)
[2021-03-07] MEDS ORDERED: enoxaparin 100mg/ml syringe SUBCUT ONE (00:15)
--- NOTE | 2021-03-07 00:17 | NUR ---
Patient prescribed eliquis due to afib. Patient unable to swallow medication, Dr. Licea ordered one time dose of lovenox for anticoagulation.
[2021-03-07] MEDS: ipratropium/albuterol 3ml nebule NEB SCH ×4 (03:44→16:01)
[2021-03-07] MEDS: amiodarone/D5 360MG/200ML BAG 200 ML IV SCH ×3 (04:02→15:17)
--- NOTE | 2021-03-07 06:34 | NUR ---
Problems reprioritized. Patient report given, questions answered & plan of care reviewed with Claudine WHITAKER.
--- NOTE | 2021-03-07 06:52 | NUR ---
Patient in room PCU 3020. I have received report from Neeraj WHITAKER and had the opportunity to ask questions and assume patient care.
--- NOTE | 2021-03-07 07:27 | NUR ---
Patient in room PCU 3020. I have received report from Neeraj WHITAKER and had the opportunity to ask questions and assume patient care.
[2021-03-07] MEDS: pantoprazole 40mg Tablet.DR PO SCH (07:30)
[2021-03-07] MEDS: apixaban 5mg tablet PO SCH (08:00)
[2021-03-07] MEDS: metoprolol succinate 25mg (24-HOUR) SR. Tablet PO SCH (08:00)
[2021-03-07] MEDS: K and/or MAG REPLACEMENT MC SCH (08:00)
[2021-03-07] MEDS: nicotine 14mg patch - 24hr TD SCH ×2 (08:00→15:24)
[2021-03-07] MEDS: docusate sod 100mg capsule PO SCH (08:00)
[2021-03-07] MEDS: lisinopril 20mg tablet PO SCH (08:00)
[2021-03-07] MEDS: lactobacillus rhamnosus 10,000 MMU CELLS/CAPSULE PO SCH (08:00)
[2021-03-07] MEDS: piperacillin/tazo 3.375gm/50ml 50 ML IV SCH ×2 (08:08→15:13)
[2021-03-07] MEDS: methylPREDNISolone sod succ/PF 40mg inj. IV SCH (08:08)
[2021-03-07] MEDS: aspirin 81mg tablet.DR PO SCH (08:30)
[2021-03-07] MEDS: spironolactone 25 MG tablet PO SCH (08:30)
[2021-03-07 08:40] LABS: ALANINE AMINOTRANSFERASE 46 U/L (12-78); ALBUMIN 3.3 G/DL (3.4-5.0); ALBUMIN/GLOBULIN RATIO 0.8 (1.1-1.5); ALKALINE PHOSPHATASE 49 IU/L (46-116); ANION GAP 11 (8-16); ASPARTATE AMINO TRANSFERASE 31 U/L (10-37); BILIRUBIN,TOTAL 2.9 MG/DL (0.1-1.0); BLOOD UREA NITROGEN 54 MG/DL (7-18); BUN/CREATININE RATIO 47.4 (5.4-32.0); CALCIUM 8.8 MG/DL (8.5-10.1); CHLORIDE 108 MMOL/L (99-107); CREATININE 1.14 MG/DL (0.60-1.10); GLUCOSE 121 MG/DL (70-104); MAGNESIUM 2.2 MG/DL (1.5-2.4); POTASSIUM 3.9 MMOL/L (3.5-5.1); SODIUM 150 MMOL/L (135-145); TOTAL CARBON DIOXIDE 30.6 MMOL/L (24-32); TOTAL PROTEIN 7.3 G/DL (6.4-8.2); eGFR 65 ML/MIN
[2021-03-07 08:44] LABS: HEMOGLOBIN 12.5 g/dl (14.0-17.9); PLATELET COUNT 111 X10'3 (140-440)
[2021-03-07 08:48] LABS: HEMATOCRIT 38.3 % (42.0-52.0); MEAN CORPUSCULAR HEMOGLOBIN 30.5 PG (27.0-31.0); MEAN CORPUSCULAR HGB CONC 32.7 g/dL (33.0-36.5); MEAN CORPUSCULAR VOLUME 93.3 FL (78-98); MEAN PLATELET VOLUME 8.6 FL (7.4-10.4); RED CELL DISTRIBUTION WIDTH 18.5 % (11.5-14.5); WHITE BLOOD COUNT 13.1 X10'3 (4.5-11.0)
[2021-03-07 09:12] LABS: NUCLEATED RED BLOOD CELLS 2 /100WBC (0-0); TOTAL CELLS COUNTED 100
[2021-03-07 09:13] LABS: ANISOCYTOSIS 2+; PLATELET ESTIMATE NORMAL; POLYCHROMASIA 1+
[2021-03-07 09:20] LABS: TARGET CELLS FEW
[2021-03-07] MEDS: LORazepam 2 mg/ml vial IV PRN ×3 (12:08→19:41)
[2021-03-07] MEDS: vancomycin/NS 1 GM ADD-VANTAGE 250 ML IV SCH (12:08)
[2021-03-07] MEDS ORDERED: dextrose 5%-water 1,000 ML IV ONE (13:05)
[2021-03-07] MEDS ORDERED: morphine 10mg/0.5ml (conc. morphine) oral syringe PO PRN (13:05)
[2021-03-07] MEDS: morphine 10 MG/5 ML UD oral solution PO PRN ×2 (13:23→17:30)
--- NOTE | 2021-03-07 17:41 | NUR ---
PAGER ID: [phone] MESSAGE: TANGELA REYNOSO [phone]. NEED COMFORT CARE MEDS TO BE MORE FREQUENT FOR 3020 ROSY RUIZ. PT NOT COMFORTABLE, MOANING. I HAVE Q4 ROXINOL AND Q4 ATIVAN, PLS CAN WE CHANGE TO Q1? TANGELA JORDAN
--- NOTE | 2021-03-07 18:17 | NUR ---
Problems reprioritized. Patient report given, questions answered & plan of care reviewed with Neeraj RN.
--- NOTE | 2021-03-07 18:20 | NUR ---
Problems reprioritized. Patient report given, questions answered & plan of care reviewed with Leonidas WHITAKER.
--- NOTE | 2021-03-07 19:14 | NUR ---
Patient is now comfort care. Patient only has PO morphine, he is unable to swallow pills. Notified Dr. Licea who ordered q2h morphine and ativan IV for comfort.
[2021-03-07] MEDS: morphine 2 MG/ML inj. syringe IV PRN (19:20)
--- NOTE | 2021-03-07 19:31 | NUR ---
Patient in room PCU 3020. I have received report from Claudine WHITAKER and had the opportunity to ask questions and assume patient care.
[2021-03-07] MEDS ORDERED: furosemide 40mg/4ml inj IV SCH (20:00)
[2021-03-08] MEDS: morphine 2 MG/ML inj. syringe IV PRN ×9 (02:44→22:06)
[2021-03-08] MEDS: LORazepam 2 mg/ml vial IV PRN ×3 (02:53→21:18)
[2021-03-08 03:00] VITALS: BP 123/89
[2021-03-08 06:00] VITALS: BP 129/107
--- NOTE | 2021-03-08 06:19 | NUR ---
Problems reprioritized. Patient report given, questions answered & plan of care reviewed with Claudine WHITAKER.
--- NOTE | 2021-03-08 06:24 | NUR ---
Patient in room PCU 3020. I have received report from Neeraj WHITAKER and had the opportunity to ask questions and assume patient care.
--- NOTE | 2021-03-08 06:34 | NUR ---
Patient in room PCU 3020. I have received report from Neeraj Gonzalez and had the opportunity to ask questions and assume patient care.
[2021-03-08] MEDS: morphine 10 MG/5 ML UD oral solution PO PRN (08:39)
--- NOTE | 2021-03-08 11:48 | NUR ---
Noted pt has been made DNR w/ comfort care per EMR. [facility] 03/06. Will continue to monitor. Rec: 1. bowel care per rx Addendum: 03/08/21 at [address] Amended: Links added.
--- NOTE | 2021-03-08 18:58 | NUR ---
Patient in room PCU 3020. I have received report from Claudine WHITAKER and had the opportunity to ask questions and assume patient care.
[2021-03-08 19:00] VITALS: BP 111/68
[2021-03-09] MEDS: morphine 2 MG/ML inj. syringe IV PRN ×6 (00:51→19:34)
[2021-03-09] MEDS: LORazepam 2 mg/ml vial IV PRN ×3 (05:40→22:15)
[2021-03-09 06:00] VITALS: BP 79/51
--- NOTE | 2021-03-09 06:11 | NUR ---
Problems reprioritized. Patient report given, questions answered & plan of care reviewed with Claudine WHITAKER.
--- NOTE | 2021-03-09 06:36 | NUR ---
Patient in room PCU 3020. I have received report from Neeraj WHITAKER and had the opportunity to ask questions and assume patient care.
--- NOTE | 2021-03-09 08:39 | NUR ---
Patient in room PCU 3020. I have received report from Neeraj Gonzalez and had the opportunity to ask questions and assume patient care.
--- NOTE | 2021-03-09 18:26 | NUR ---
[place] documentation: I have reviewed and agree with all interventions, assessments performed and documented by Mayank WHITAKER.
--- NOTE | 2021-03-09 18:27 | NUR ---
Problems reprioritized. Patient report given, questions answered & plan of care reviewed with Neeraj RN.
[2021-03-09 19:00] VITALS: BP 112/61
--- NOTE | 2021-03-09 20:12 | NUR ---
Patient in room PCU 3020. I have received report from Marcy WHITAKER and had the opportunity to ask questions and assume patient care.
[2021-03-10] MEDS: morphine 2 MG/ML inj. syringe IV PRN ×5 (00:20→07:07)
[2021-03-10] MEDS: LORazepam 2 mg/ml vial IV PRN (05:52)
[2021-03-10 06:58] VITALS: BP 56/30
--- NOTE | 2021-03-10 07:20 | NUR ---
PT PRONOUNCED 0714. CALLED TO NOTIFY FAMILY. PAGED DR. PAHM TO NOTIFY TIME OF . FAMILY REQUESTED TO HOLD PT ON FLOOR UNTIL THEY GOT HERE. WILL CALL [employer] AND FOLLOW [employer]OT[employer]OL.
--- NOTE | 2021-03-10 09:42 | NUR ---
FAMILY CAME TO BEDSIDE. STATED THEY WANTED PT SENT TO [facility]. MADE ARRANGEMENTS WITH [facility] AND SPOKE WITH MARIN THERE. PT WILL BE PICKED UP IN ABOUT 1 HOUR. ALL PAPERWORK FILLED OUT AND IN CHART. ALL LINES REMOVED FROM PT. BELONGINGS TAKEN BY FAMILY.
== END 2021-03-10 11:12 | disposition expired | DRG 720 ==
LOC: ER 19:03 → ED HOLD 21:46 → PCU 3S 03-03 01:52
PROVIDERS: ADMIT Internal Medicine; ATTEND Family Medicine
PROC: 5A2204Z Restoration of Cardiac Rhythm, Single (ICD-10-PCS; 2021-03-03)
PROC: 0W993ZZ Drainage of Right Pleural Cavity, Percutaneous Approach (ICD-10-PCS; principal; 2021-03-04)
PROC: B32T1ZZ Computerized Tomography (CT Scan) of Left Pulmonary Artery using Low Osmolar Contrast (ICD-10-PCS; 2021-03-04)
PROC: B3201ZZ Computerized Tomography (CT Scan) of Thoracic Aorta using Low Osmolar Contrast (ICD-10-PCS; 2021-03-04)
PROC: B32S1ZZ Computerized Tomography (CT Scan) of Right Pulmonary Artery using Low Osmolar Contrast (ICD-10-PCS; 2021-03-04)
DX: A41.9 Sepsis, unspecified organism (principal); J96.20 Acute and chronic respiratory failure, unspecified whether with hypoxia or hypercapnia; J69.0 Pneumonitis due to inhalation of food and vomit; I50.23 Acute on chronic systolic (congestive) heart failure; J94.8 Other specified pleural conditions; I42.9 Cardiomyopathy, unspecified; I95.9 Hypotension, unspecified; K74.60 Unspecified cirrhosis of liver; F20.9 Schizophrenia, unspecified; I48.91 Unspecified atrial fibrillation; N18.30 Chronic kidney disease, stage 3 unspecified; Z51.5 Encounter for palliative care; Z66 Do not resuscitate; F17.200 Nicotine dependence, unspecified, uncomplicated; B85.2 Pediculosis, unspecified; I25.10 Atherosclerotic heart disease of native coronary artery without angina pectoris; B19.20 Unspecified viral hepatitis C without hepatic coma; J98.11 Atelectasis; R74.01 Elevation of levels of liver transaminase levels; L03.113 Cellulitis of right upper limb; J43.9 Emphysema, unspecified; R41.3 Other amnesia; L03.114 Cellulitis of left upper limb; Z59.0 Homelessness; Z78.1 Physical restraint status; Z79.01 Long term (current) use of anticoagulants; Z71.6 Tobacco abuse counseling; R41.0 Disorientation, unspecified
CPT/HCPCS: 32555; 36415; 36600; 70450; 71045; 71275; 76700; 80053; 80061; 80202; 80305; 81001; 82140; 82803; 82945; 82948; 83605; 83615; 83735; 83880; 83986; 84145; 84157; 84484; 85007; 85008; 85018; 85025; 85610; 86703; 86705; 86706; 86709; 86803; 87040; 87070; 87081; 87340; 87426; 89051; 92508; 92616; 93005; 93306; 94640; 94760; 94799; 97110; 97116; 97162; 99285; G0378; J0696; J1250; J1630; J1644; J1650; J1940; J2060; J2270; J2405; J2543; J2920; J2930; J3010; J3370; J3486; J3490; J7030; J7040; J7070; P9047; Q9967